=== PATIENT | male | born 1980 | race Caucasian/White ===

== ENCOUNTER 2020-01-19 14:01 | Emergency (ER) | payer SELFPAY ==
[2020-01-19] MEDS ORDERED: LIDOCAINE 1% 10 ML VIAL INJ ONE (14:07)
[2020-01-19] MEDS ORDERED: TETANUS,DIPHTHERIA,PERTUSSIS 1 EA SYG IM ONE (14:09)
[2020-01-19] MEDS ORDERED: SULFA/TRIMETH 800/160 (DS) TAB 1 EA TAB PO ONE (14:15)
[2020-01-19 14:17] VITALS: TEMP 98.6; O2SAT 98
--- NOTE | 2020-01-19 14:19 | ED.PDOC ---
History of Present Illness - General Chief Complaint: General Stated Complaint: Fishing hook in the R thumb Time Seen by Provider: 01/19/20 14:15 Source: patient Exam Limitations: no limitations - History of Present Illness Initial Comments: Patient is a 39-year-old male presented emergency room secondary to getting a treble hook stuck in the palm of his right hand just prior to arrival. No other injuries. He is neurovascularly intact. Timing/Duration: 1/2 hour Severity: mild Improving Factors: nothing Worsening Factors: nothing Allergies/Adverse Reactions: Allergies NO KNOWN ALLERGY Allergy (Verified 01/19/20 14:09) Home Medications: Ambulatory Orders Sulfa/Trimeth 800/160 (Ds) Tab [Bactrim DS Tab] 1 ea PO BID #10 tab 01/19/20 Review of Systems - Review of Systems Constitutional: States: no symptoms reported EENTM: States: no symptoms reported Respiratory: States: no symptoms reported Cardiology: States: no symptoms reported Gastrointestinal/Abdominal: States: no symptoms reported Genitourinary: States: no symptoms reported Musculoskeletal: States: no symptoms reported Skin: States: see HPI Neurological: States: no symptoms reported Endocrine: States: no symptoms reported Hematologic/Lymphatic: States: no symptoms reported All other Systems: No Change from Baseline Physical Exam - Physical Exam General Appearance: Alert, Comfortable, No apparent distress Eye Exam: bilateral normal Ears, Nose, Throat: hearing grossly normal Respiratory: normal breath sounds, no respiratory distress Cardiovascular/Chest: normal peripheral pulses, no edema Peripheral Pulses: radial,right: 2+, radial,left: 2+ Rectal Exam: deferred Extremity: normal range of motion, normal capillary refill Neurologic: data control assistant II-XII nml as tested, alert, normal mood/affect, oriented x 3 Skin Exam: normal color - Treble hook to the ulnar aspect of the distal thumb. Comments: Vital Signs - 24 hr 01/19/20 14:05 Temperature 98.6 F Pulse Rate [ 94 H Pulse ox] Respiratory 20 Rate Blood Pressure 140/90 [R brachial] O2 Sat by Pulse 98 Oximetry Progress - Progress Progress: 01/19/20 14:17 The patient is a 39-year-old male presenting with a fishhook to the distal aspect of his right thumb. After risk and benefits were explained and patient agreed to proceed with removal. Wound was cleaned with water and hydrogen peroxide. Xylocaine without epinephrine x1 cc was used as a local anesthetic and the hook was backed out. Patient tolerated this well. Estimated blood loss is less than 1 cc. The patient was given a tetanus shot and a dose of Bactrim. He will be placed on Bactrim for the next 5 days. Monitor for any evidence of infection. ER warnings are given. [email or web address] [id number] Departure - Departure Clinical Impression: Fishing hook foreign body Qualifiers: Encounter type: initial encounter Qualified Code(s): W45.8XXA - Other foreign body or object entering through skin, initial encounter Disposition: Discharge to Home or Self Care Condition: Fair Departure Forms: ED Discharge - Pt. Copy, Patient Portal Self Enrollment Diet: regular diet Activity: increase activity as tolerated Prescriptions: Sulfa/Trimeth 800/160 (Ds) Tab [Bactrim DS Tab] 1 ea PO BID #10 tab Home Medications: Ambulatory Orders Sulfa/Trimeth 800/160 (Ds) Tab [Bactrim DS Tab] 1 ea PO BID #10 tab 01/19/20 Additional Instructions: The patient is a 39-year-old male presenting with a fishhook to the distal aspect of his right thumb. Hook was removed without significant difficulty. The patient was given a tetanus shot and a dose of Bactrim. He will be placed on Bactrim for the next 5 days. Monitor for any evidence of infection. ER warnings are given.
[2020-01-19] MEDS ORDERED: NEOMYCIN-BACITRACIN-POLYMYXIN 0.9 GM UD TOP ONE (14:22)
[2020-01-19 14:33] VITALS: BP 194/132
== END 2020-01-19 14:38 | disposition home or self-care (01) ==
LOC: ER 14:01
DX: S61.041A Puncture wound with foreign body of right thumb without damage to nail, initial encounter (principal); W45.8XXA Other foreign body or object entering through skin, initial encounter; Y92.9 Unspecified place or not applicable